=== PATIENT | male | born 1955 | race Hispanic/Latino ===

== ENCOUNTER 2017-05-02 06:07 | Day surgery (SDC) | payer BC ==
[2017-05-01 13:52] VITALS: BMI 36.9
[2017-05-02] MEDS ORDERED: HEPARIN SODIUM/NS 2,000 ML IV ONE (06:36)
[2017-05-02] MEDS ORDERED: Lidocaine 2% Inj (20ml) ONE (06:36)
[2017-05-02] MEDS ORDERED: Phenylephrine 10 mg/ml Inj ONE (06:38)
[2017-05-02] MEDS ORDERED: Nitroglycerin 50mg in D5W 0 MG/0 ML BOTTLE IV ONE (06:44)
[2017-05-02] MEDS ORDERED: Iodixanol 320 MG/ML 200 ML BOTTLE IV ONE (06:52)
[2017-05-02] MEDS ORDERED: Iodixanol 320 MG/ML 100 ML BOTTLE IV ONE (06:52)
[2017-05-02] MEDS ORDERED: Iohexol 350mgl/ml 50 ML ONE (06:52)
[2017-05-02 07:13] LABS: BASO # 0.02 K/mm3 (0.0-2.0); BASO % 0.3 % (0.0-3.0); EOS # 0.1 (0.0-0.7); EOS % 1.3 % (1.5-5.0); GRAN # 5.93 (1.4-6.5); GRAN % 74.6 % (50.0-68.0); LYMPH # 1.3 (1.2-3.4); MEAN CELL VOLUME 86.8 fl (80.0-105.0); MEAN CORPUSCULAR HEMOGLOBIN 28.3 pg (25.0-35.0); MEAN CORPUSCULAR HGB CONC 32.6 g/dl (31.0-37.0); MEAN PLATELET VOLUME 9.3 fl (7.0-11.0); MONO # 0.6 (0.1-0.6); MONO % 7.8 % (1.0-6.0); RBC 4.94 10^6/uL (3.5-6.1); RED CELL DISTRIBUTION WIDTH 13.5 % (11.5-14.5); WHITE BLOOD COUNT 7.9 10^3/ul (4.5-11.0)
[2017-05-02 07:17] LABS: BLOOD UREA NITROGEN 23 mg/dL (7-21); GFR AFRICAN-AMERICAN > 60; GFR NON-AFRICAN AMERICAN > 60
[2017-05-02 07:24] LABS: PARTIAL THROMBOPLASTIN TIME 28.7 Seconds (25.1-36.5); PROTHROMBIN TIME 11.5 SECONDS (9.4-12.5)
[2017-05-02] MEDS ORDERED: Midazolam 2 MG/2 ML VIAL ONE ×2 (07:32→08:04)
[2017-05-02] MEDS ORDERED: Adenosine 90 mg/30mL IV ONE (08:21)
[2017-05-02] MEDS ORDERED: Sodium Chloride 0.9% 1,000 ML IV SCH (09:00)
--- NOTE | 2017-05-02 10:04 | CARDCATH ---
PROCEDURE DATE: 05/02/2017 PROCEDURES: 1. Cardiac catheterization. 2. Percutaneous transluminal coronary angioplasty. PERFORMING PHYSICIAN: Reg Chow MD HISTORY: The patient is a 61-year-old male with multiple cardiac risk factors who is status post multivessel PTCA and stent in the past who presents with an abnormal stress test. A cardiac catheterization was recommended. PROCEDURE IN DETAIL: Left heart catheterization with coronary arteriography, left ventriculogram, FFR, as well as PTCA and stent of an LAD. The right femoral artery was cannulated with a 6-Croatian sheath. There were no complications. The right femoral artery was cannulated with a 6-Croatian sheath. I performed moderate sedation which included the presence of an independent trained observer that assisted in monitoring the patient's level of consciousness and physiologic status. After administration of Versed and fentanyl, my intra service time was 30 minutes. FINDINGS: 1. The findings on the catheterization revealed a left ventricle that contracted normally. Estimated ejection fraction is 65% to 70%. 2. The patient has a right dominant circulation as a patent stent in the RCA. 3. Left main artery was unremarkable. 4. The circumflex artery and obtuse marginal branches revealed patent stents, one in the midportion and one at the proximal portion in the ostium of the OM. There is a 50% to 60% stenosis noted. 5. The LAD revealed diffuse atherosclerosis throughout its tree. There was a patent stent noted in the mid to distal portion, there was an eccentric 70% stenoses noted. 6. The diagonal vessels revealed intimal irregularities without critical lesions. 7. An FFR was performed which due to technical difficulties could not be measured accurately. 8. The patient was started on Angiomax. 9. The guiding catheter was placed in the ostium of the left main artery. An 0.014 ATW wire was used to cross the critical lesion. 10 A 2.5 x 18 mm drug-eluting stent was placed and deployed at 12 ounces of pressure. Repeat coronary arteriography revealed an excellent result with no residual stenosis and LORENA III flow. 11. Angio-Seal was used to close the femoral artery site. The patient tolerated the procedure well. IMPRESSION: 1. In summary, the procedure was successful percutaneous transluminal coronary angioplasty and stent of a critically stenosed mid to distal left anterior descending with a drug-eluting stent. 2. The rest of the stent that were placed in the past were patent. 3. Left ventricular function is normal. PLAN: Given these findings, the patient's treatment will be continue aspirin indefinitely and Plavix for at least a year and undergo a strict cardiac risk reduction program. Reg Chow MD
--- NOTE | 2017-05-02 11:06 | CP.PCM.HP ---
History of Present Illness - History of Present Illness History of Present Illness: IM H&P for Dr. Boudreaux Service CC: observation post-Cath HPI: This is a 61 yo M with PMH of DM, HTN, HLD, CAD s/p 3 stents ( 2016) and prior AK who presents for scheduled cardiac cath after outpatient stress test showed an abnormality. Patient underwent elective cardiac cath today, during which a critically-stenosed mid-distal LAD segment was identified , and a drug-eluting stent was placed. Patient then transferred to telemetry floor for post-cath observation. As per patient, was asymptomatic prior to both the stress test and the cath, and still reports a lack of chest pain, nausea, or shortness of breath. No complaints at time of exam on the floor. Right femoral canulation site pressure bandaged, without acute pain, no active oozing or bleeding. All other ROS in 12-system review negative. PMH: as above PSH: Cardiac cath 2015, Cardiac cath 2017 Fam Hx: Unspecified brain cancer (father), denies family hx of cardiac disease Soc Hx: former tobacco (1/2 ppd intermittently for > 10 yrs, quit 2 yrs prior), denies alcohol or illicits/IVDA PMD: Dr. Boudreaux Present on Admission - Present on Admission Any Indicators Present on Admission: No History of DVT/PE: No History of Uncontrolled Diabetes: No Review of Systems - Review of Systems All systems: reviewed and no additional remarkable complaints except (as per HPI ) Past Patient History - Tetanus Immunizations Tetanus Immunization: Unknown - Past Social History Smoking Status: Former Smoker - CARDIAC Hx Pacemaker: No - PULMONARY Hx Respiratory Disorders: Yes Hx Bronchitis: Yes - NEUROLOGICAL Hx Paralysis: No - HEENT Hx HEENT Problems: No Other/Comment: WEARS RX GLASSES - RENAL Hx Chronic Kidney Disease: No - ENDOCRINE/METABOLIC Hx Endocrine Disorders: Yes Hx Diabetes Mellitus Type 2: Yes - HEMATOLOGICAL/ONCOLOGICAL Hx Blood Transfusions: No - INTEGUMENTARY Hx Dermatological Problems: Yes Hx Psoriasis: Yes - MUSCULOSKELETAL/RHEUMATOLOGICAL Hx Musculoskeletal Disorders: No - GASTROINTESTINAL Hx Gastrointestinal Disorders: No - GENITOURINARY/GYNECOLOGICAL Hx Genitourinary Disorders: No - PSYCHIATRIC Hx Emotional Abuse: No Hx Physical Abuse: No Hx Substance Use: No - SURGICAL HISTORY Hx Surgeries: Yes - ANESTHESIA Hx Anesthesia Reactions: No Hx Malignant Hyperthermia: No Meds Allergies/Adverse Reactions: Allergies Allergy/AdvReac Type Severity Reaction Status Date / Time No Known Allergies Allergy Verified 05/10/15 15:36 Physical Exam - Constitutional Appears: Non-toxic, No Acute Distress - Head Exam Head Exam: ATRAUMATIC, NORMAL INSPECTION, NORMOCEPHALIC - Eye Exam Eye Exam: EOMI, Normal appearance. absent: Conjunctival injection, Scleral icterus Pupil Exam: absent: Irregular, Unequal - ENT Exam ENT Exam: Mucous Membranes Moist - Neck Exam Neck exam: Positive for: Full Rom, Normal Inspection - Respiratory Exam Respiratory Exam: Decreased Breath Sounds (mildly decreased breath sounds in all phillips), Clear to Auscultation Bilateral, NORMAL BREATHING PATTERN. absent : Accessory Muscle Use, Chest Wall Tenderness, Rales, Rhonchi, Wheezes - Cardiovascular Exam Cardiovascular Exam: REGULAR RHYTHM, RRR, +S1, +S2. absent: Bradycardia, Tachycardia, Irregular Rhythm, JVD, +S4 - GI/Abdominal Exam GI & Abdominal Exam: Normal Bowel Sounds, Soft. absent: Tenderness - Extremities Exam Extremities exam: Positive for: pedal pulses present (+2 radials and +1 dorsalis pedis B/L). Negative for: joint swelling, pedal edema, tenderness Additional comments: bandaging at right groin cannulation site, no fluctuance/erythema/tenderness at site, no active bleeding or oozing from site - Neurological Exam Neurological exam: Alert Additional comments: -awake and alert, moving bilateral upper extremities and left lower extremity spontaneously, intentionally restricting right lower extremity movement due to instructions not to move leg (s/p cath) - Psychiatric Exam Psychiatric exam: Normal Affect, Normal Mood - Skin Skin Exam: Dry, Intact (except as documented in extremities exam), Normal Color , Warm Results - Vital Signs Recent Vital Signs: Last Vital Signs Temp 98.7 F 05/02/17 10:25 Pulse 78 05/02/17 10:25 Resp 18 05/02/17 10:25 BP 128/76 05/02/17 10:25 Pulse Ox 97 05/02/17 06:51 - Labs Result Diagrams: 05/02/17 06:30 05/02/17 06:30 Labs: Laboratory Results - last 24 hr 05/02/17 05/02/17 05/02/17 06:30 06:30 06:30 WBC 7.9 RBC 4.94 Hgb 14.0 Hct 42.9 MCV 86.8 MCH 28.3 MCHC 32.6 RDW 13.5 Plt Count 262 MPV 9.3 Gran % 74.6 H Lymph % (Auto) 16.0 L [place] % (Auto) 7.8 H Eos % (Auto) 1.3 L Baso % (Auto) 0.3 Gran # 5.93 Lymph # (Auto) 1.3 [place] # (Auto) 0.6 Eos # (Auto) 0.1 Baso # (Auto) 0.02 PT 11.5 INR 1.00 APTT 28.7 Sodium 141 Potassium 4.6 Chloride 103 Carbon Dioxide 24 Anion Gap 19 BUN 23 H Creatinine 0.9 Est GFR ( Amer) > 60 Est GFR (Non-Af Amer) > 60 Random Glucose 130 H Calcium 9.0 Blood Type Blood Type Confirm Antibody Screen BBK History Checked 05/02/17 05/02/17 06:30 06:45 WBC RBC Hgb Hct MCV MCH MCHC RDW Plt Count MPV Gran % Lymph % (Auto) [place] % (Auto) Eos % (Auto) Baso % (Auto) Gran # Lymph # (Auto) [place] # (Auto) Eos # (Auto) Baso # (Auto) PT INR APTT Sodium Potassium Chloride Carbon Dioxide Anion Gap BUN Creatinine Est GFR ( Amer) Est GFR (Non-Af Amer) Random Glucose Calcium Blood Type A POSITIVE Blood Type Confirm A POSITIVE Antibody Screen Negative BBK History Checked No verified bt Assessment & Plan - Assessment and Plan (Free Text) Assessment: This is a 61 yo M with PMH of DM, HTN, HLD, CAD s/p 3 stents (2015) and prior AK who presents for scheduled cardiac cath after outpatient stress test showed an abnormality. He is admitted for tele-obs s/p cath. Plan: 1) CAD with 3 stents, S/p cardiac cath -as per Cardio, mid-distal LAD stent placed, hx of 3 prior stents -vitals and duplex pulses as per cardio's instructions -no right lower extremity movement for 6 hrs -continue ASA, plavix, and statin as per Cardio 2) HTN -holding home Losartan/HCTZ due to stable BP and recent dye challenge to kidneys (cardiac cath) -if BP becomes elevated, can use prn hydralazine 3) HLD -continue atorvastatin -heart-healthy diet 4) DM -holding home insulin regimen in favor of high sliding scale -fingerchecks ACHS Dispo: Tele-obs post-cath, pending pulse checks FEN: Heart-healthy Access: Peripheral IV Consults: Cardio Ppx: Protonix for GI, avoid SCD for RLE until limb cleared Patient seen, reviewed, and discussed with attending, Dr. Boudreaux. Decision To Admit - Pt Status Changed To: Hospital Disposition Of: Extended Recovery/Post Procedure - . Bed Request Type: Telemetry
[2017-05-02 12:10] LABS: HDL CHOLESTEROL 38 mg/dL (29-60)
[2017-05-02 12:20] LABS: LDL CHOLESTEROL 71 mg/dL (0-129)
--- NOTE | 2017-05-02 12:51 | CARD ---
APPROVED REPORT EKG Measurement Heart [id number] ID [id number] <Conclusion> Normal sinus rhythm Possible Left atrial enlargement Borderline ECG
[2017-05-02 13:16] LABS: FREE T4 1.02 ng/dL (0.78-2.19); T4 6.9 ug/dL (5.5-11.0)
--- NOTE | 2017-05-02 15:23 | HP ---
ADDENDUM The patient is seen and examined in room 273, bed 3, post cardiac cath and angioplasty. The patient was seen and examined with the medical transcriber. The patient is lying in the bed at present. The patient's vital signs, diagnostic data, all reports reviewed. IMPRESSION: 1. Status post cardiac catheterization and percutaneous transluminal coronary angioplasty of the left anterior descending artery. 2. History of myocardial infarction. 3. History of multivessel coronary artery disease and status post angioplasty x4. 4. Left ventricle ejection fraction of 65% to 70%. 5. Patent stent of the right coronary artery. 6. Patent stent of the obtuse marginal and left circumflex. 7. A 50% to 60% stenosis of the midportion and proximal portion of the obtuse marginal. 8. Patent stent of the mid and distal portion of the left anterior descending artery with an eccentric 70% stenosis. 9. Status post successful percutaneous transluminal coronary angioplasty and stent placement of the critically stenosed mid to distal left anterior descending artery with a drug-eluting stent. 10. Insulin-requiring diabetes mellitus. 11. Obesity. 12. Diabetic neuropathy. 13. Hypertension. 14. Hypovitaminosis D. 15. Dyslipidemia. 16. Obesity with elevated body mass index of 37. 17. Abnormal stress on 04/27/2017 showing fixed inferolateral defect. 18. History of successful angioplasty and stent placement of the proximal left anterior descending stenosis, history of multivessel coronary artery disease. 19. History of acute ST elevation inferior wall myocardial infarction. 20. Past medical history is also significant for unstable angina, history of former smoker. PLAN: At this time, the patient is admitted to telemetry post cardiac catheterization and angioplasty. The patient will be placed on bedrest. The patient has been ordered repeat CBC, CMP in the morning. The patient is started on aspirin and Lipitor and Plavix and IV fluid 0.9 at 100 mL an hour. Repeat EKG ordered. Consistent carbohydrate diet ordered. The patient will be placed on sliding scale insulin. We will hold basal insulin as the patient is reporting that his blood sugar has been running normal. We will order lipid panel and hemoglobin A1c and thyroid profile while the patient is in the hospital. At present, the patient has been started on aspirin 81 daily, insulin sliding scale coverage high-dose, Lipitor 40 mg daily, Plavix 75 daily, IV fluid 0.9 normal saline at 100 mL an hour. The patient is on post cardiac catheterization angioplasty bedrest. For further details of history and physical examination, please review the history and physical examination done by the medical transcriber on 05/02/2017. Dictated and electronically signed, not read. Vahid Boudreaux MD
[2017-05-02] MEDS: Insulin Lispro (HUMAlog) HIGH Coverage SC SCH (16:30)
[2017-05-02] MEDS: Pantoprazole 40 mg EC Tab PO SCH (18:17)
[2017-05-03] MEDS: Pantoprazole 40 mg EC Tab PO SCH (05:02)
[2017-05-03 05:33] VITALS: RESP 20; TEMP 97.8; O2SAT 95
[2017-05-03 06:05] LABS: FRUCTOSAMINE 227 umol/L (190-270)
[2017-05-03 06:40] LABS: BASO # 0.03 K/mm3 (0.0-2.0); BASO % 0.3 % (0.0-3.0); EOS # 0.1 (0.0-0.7); EOS % 1.1 % (1.5-5.0); GRAN # 7.16 (1.4-6.5); GRAN % 75.3 % (50.0-68.0); HEMOGLOBIN 14.2 g/dL (14.0-18.0); LYMPH # 1.3 (1.2-3.4); LYMPH % 13.3 % (22.0-35.0); MEAN CORPUSCULAR HEMOGLOBIN 28.3 pg (25.0-35.0); MEAN CORPUSCULAR HGB CONC 32.6 g/dl (31.0-37.0); MEAN PLATELET VOLUME 9.1 fl (7.0-11.0); RBC 5.01 10^6/uL (3.5-6.1); RED CELL DISTRIBUTION WIDTH 13.6 % (11.5-14.5); WHITE BLOOD COUNT 9.5 10^3/ul (4.5-11.0)
[2017-05-03 07:35] LABS: BLOOD UREA NITROGEN 20 mg/dL (7-21); CALCIUM 9.3 mg/dL (8.4-10.5); GFR AFRICAN-AMERICAN > 60; GFR NON-AFRICAN AMERICAN > 60
[2017-05-03] MEDS ORDERED: Sod Polystyrene Sulf 15 gm/60 ml Susp PO ONE (08:01)
[2017-05-03] MEDS: Insulin Lispro (HUMAlog) HIGH Coverage SC SCH (08:33)
[2017-05-03 09:54] VITALS: BP 116/78; PULSE 97
[2017-05-03] MEDS ORDERED: CHOLECALCIFEROL 5000 UNIT PO SCH ×3 (10:00)
--- NOTE | 2017-05-03 11:15 | PN ---
DATE: 05/03/2017 CARDIOLOGY FOLLOWUP SUBJECTIVE: The patient is asymptomatic post PTCA. PHYSICAL EXAMINATION VITAL SIGNS: Blood pressure is 116/78, heart rates in the 80s. NECK: Negative JVD. LUNGS: Without rales. HEART: S1 and S2. EXTREMITIES: Without edema. LABORATORY DATA: Hemoglobin is 14. Chemistries: BUN and creatinine are unremarkable. Glucose is 139. IMPRESSION AND PLAN: 1. Stable post percutaneous transluminal coronary angioplasty and stent. 2. Coronary artery disease. 3. Diabetes mellitus. 4. Hypertension. 5. Hypercholesterolemia. 6. Overweight. Given these findings, the patient is stable for discharge. Followup and instructions have been given to the patient in detail. We will discontinue his Protonix. The patient has an appointment to follow with me in 2-3 weeks. Reg Chow MD
--- NOTE | 2017-05-03 16:12 | CARD ---
APPROVED REPORT EKG Measurement Heart [id number] <Conclusion> Normal sinus rhythm Normal ECG
--- NOTE | 2017-05-04 07:09 | DS ---
HISTORY OF PRESENT ILLNESS: Patient is seen in room 273, bed 3. Patient is out of bed to chair. Patient is awaiting cardiology clearance for discharge. Right groin examination was intact without any hematoma. PHYSICAL EXAMINATION: VITAL SIGNS: T-max 98.6. Telemetry shows sinus rhythm, heart rate 85, 87, 84. Blood pressure 116/78 to 131/66, 117/65; respiration 20; O2 sat 95% to 96%. HEENT: Head examination normocephalic, atraumatic. HEENT examination shows pink conjunctivae. Anicteric sclerae. No oropharyngeal lesion. No neck rigidity. CHEST: Kyphosis. LUNGS: Shows no rales, crackles or wheezing. CARDIOVASCULAR: S1, S2, regular rhythm. ABDOMEN: Protuberant, obese. Positive bowel sound. GENITALIA: Male. RECTAL: Examination is deferred. EXTREMITIES: No pitting edema, no calf tenderness, no Homans' sign. MUSCULOSKELETAL: Shows elevated body mass index of 37. Cranial nerves II through XII limited. Gait examination is independent. DIAGNOSTICS: On 05/03, WBC 9.5, hemoglobin and hematocrit 14.2 and 43.6, platelet 264. Sodium 141; potassium 5.3, non hemolyzed; chloride 103; CO2 28; anion gap 16; BUN 20; creatinine 1.0. GFR greater than 60. Glucose 121, 139, 292. Calcium 9.3, hemoglobin A1c 6.7, cholesterol 133, LDL 71, HDL 38, triglycerides 84. EKG done today shows sinus rhythm, normal EKG. Patient is seen by Cardiology, Dr. Chow, cleared for discharge. FINAL IMPRESSION, PLAN, DISCHARGE DIAGNOSES: 1. Multivessel coronary artery disease. 2. Status post percutaneous coronary angioplasty and stent placement. 3. Insulin-requiring diabetes mellitus. 4. Morbid obesity. 5. Hypertension. 6. Dyslipidemia. 7. Status post cardiac catheterization and percutaneous transluminal coronary angioplasty of the critically stenosed [id number] left anterior descending artery with a drug-eluting stent. 8. Left ventricular ejection fraction of 65% to 70%. 9. Patent stent in the circumflex artery and obtuse marginal. 10. Patent stent in the midportion and the proximal portion of the obtuse marginal. 11. 50% to 60% stenosis of the obtuse marginal. 12. Patent stent in the [id number] portion of the left anterior descending artery with eccentric 70% stenosis. 13. Well-controlled insulin-requiring diabetes mellitus with hemoglobin A1c of 6.7. 14. Non-hemolyzed hyperkalemia. At present, patient is cleared for discharge. DISCHARGE MEDICATIONS: Patient is discharged home on: 1. Aspirin 81 mg daily. 2. Plavix 75 mg daily. 3. Lipitor 40 mg daily. 4. Vitamin D2 50,000 units weekly. 5. Patient is on Xigduo XR 12/999 daily. 6. Dexilant 60 mg daily. 7. Hyzaar 50/12.5 daily. 8. Soliqua 52 units every morning. 9. Patient is on Lopressor 25 mg twice a day. 10. Lyrica 50 mg at bedtime. Patient is discharged home after cleared by Cardiology. Patient was advised to follow up with Dr. Boudreaux within 1 week. Discharge medications as per updated ambulatory orders and new scripts. Weight loss was advised. Dictated and electronically signed, not read. Vahid Boudreaux MD
== END 2017-05-03 12:10 | disposition home or self-care (01) ==
LOC: CATH 06:07 → 2RSO 09:04 → CATH 05-03 12:10
PROVIDERS: ATTEND Internal Medicine Cardiovascular Disease
DX: I25.10 Atherosclerotic heart disease of native coronary artery without angina pectoris (principal); I25.2 Old myocardial infarction; E11.40 Type 2 diabetes mellitus with diabetic neuropathy, unspecified; I10 Essential (primary) hypertension; E78.00 Pure hypercholesterolemia, unspecified; E55.9 Vitamin D deficiency, unspecified; E66.9 Obesity, unspecified; Z68.37 Body mass index [BMI] 37.0-37.9, adult; Z79.4 Long term (current) use of insulin; Z95.5 Presence of coronary angioplasty implant and graft; Z87.891 Personal history of nicotine dependence
CPT/HCPCS: 36415; 80048; 80061; 82306; 82948; 82985; 83036; 84378; 84439; 84443; 85025; 85610; 85730; 86850; 86900; 93005; 93458; 93571; 99152; 99153; C1760; C1769 ×2; C1874; C1887 ×2; C2629; C9600; J0153; J0583; J1644; J2250; J3010; J7030; J7040; Q9967

== ENCOUNTER 2018-06-03 08:44 | Observation (INO) | payer BC ==
--- NOTE | 2018-06-03 09:38 | ED PDOC ---
Arrival/HPI - General Chief Complaint: Chest Pain Time Seen by Provider: 06/03/18 08:48 Historian: Patient - History of Present Illness Narrative History of Present Illness (Text): 06/03/18 09:37 62 year old male, with Past medical history of DM, HTN, HLD, CAD s/p 3 stents (2015) and prior [place] presents to the Emergency department complaining of continuos numbness in his left hand, fingers and thumb included, for the past 3 days. He is also complaining of an intermittent left sided chest pain, described as "twinges" that last for a couple of seconds, and left upper and lower back for the past 2 days. patient states he has dyspnea on exertion and experiences dizziness and lightheadedness with certain movements. He denies nausea, vomiting, diaphoresis or weakness. He also denies smoking and reports that he ceased 3 weeks ago, any illicit drug use, but endorses occasional drinking. Of note, patient reports that he did not take his aspirin or plavix today. PMD: Dr. Boudreaux Traffic Worker: Dr. Chow Time/Duration: < week Symptom Onset: Gradual Activities at Onset: Light Context: Home Past Medical History - Provider Review Nursing Documentation Reviewed: Yes - Tetanus Immunization Tetanus Immunization: Unknown - Cardiac Hx Pacemaker: No - Pulmonary Hx Respiratory Disorders: Yes Hx Bronchitis: Yes - Neurological Hx Paralysis: No - HEENT Hx HEENT Disorder: No Other/Comment: WEARS RX GLASSES - Renal Hx Renal Disorder: No - Endocrine/Metabolic Hx Endocrine Disorders: Yes Hx Diabetes Mellitus Type 2: Yes - Hematological/Oncological Hx Blood Transfusions: No - Integumentary Hx Dermatological Disorder: Yes Hx Psoriasis: Yes - Musculoskeletal/Rheumatological Hx Musculoskeletal Disorders: No - Gastrointestinal Hx Gastrointestinal Disorders: No - Genitourinary/Gynecological Hx Genitourinary Disorders: No - Psychiatric Hx Emotional Abuse: No Hx Physical Abuse: No Hx Substance Use: No - Surgical History Hx Coronary Stent: Yes (4 CARDIAC STENTS 05-10-15) Other/Comment: CARDIAC CATH 11-02-15 WITH CORONARY STENTS PLACED 4 - Anesthesia Hx Anesthesia: Yes Hx Anesthesia Reactions: No Hx Malignant Hyperthermia: No - Suicidal Assessment Feels Threatened In Home Enviroment: No Family/Social History - Physician Review Nursing Documentation Reviewed: Yes Family/Social History: Unknown Family HX Smoking Status: Former Smoker Hx Alcohol Use: No Hx Substance Use: No Hx Substance Use Treatment: No Allergies/Home Meds Allergies/Adverse Reactions: Allergies No Known Allergies Allergy (Verified 06/03/18 11:33) Home Medications: Home Meds Medication Instructions Recorded Confirmed Cholecalciferol (Vitamin D3) 5,000 unit PO DAILY 05/14/15 05/02/17 [Vitamin D3] Dapagliflozin/Metformin HCl 1 tab PO DAILY 04/27/17 05/02/17 [Xigduo Xr 10 mg-1,000 mg Tab] Dexlansoprazole [Dexilant] 60 mg PO DAILY 04/27/17 05/02/17 HCTZ/Losartan Potassium [Hyzaar 1 tab PO DAILY 04/27/17 05/02/17 12.5 MG-50 MG] Pregabalin [Lyrica] 50 mg PO HS 04/27/17 05/02/17 Insulin Glargine/Lixisenatide 52 unit SC QAM 05/01/17 05/02/17 [Soliqua 100 Unit-33 Mcg/ml Pen] Review of Systems - Physician Review All systems were reviewed & negative as marked: Yes - Review of Systems Cardiovascular: Chest Pain, GARCIA Gastrointestinal: absent: Nausea, Vomiting Musculoskeletal: Back Pain, Other (left hand numbness) Neurological: Dizziness (with certain movements) Endocrine: absent: Diaphoresis Physical Exam Vital Signs Reviewed: Yes Vital Signs Temp Pulse Pulse Resp BP Pulse Ox 06/03/18 08:55 98 H 06/03/18 08:44 97.9 F 107 H 18 143/80 98 Temperature: Afebrile Blood Pressure: Normal Pulse: Tachycardic Respiratory Rate: Normal Appearance: Positive for: Well-Appearing, Non-Toxic, Comfortable Pain Distress: None Mental Status: Positive for: Alert and Oriented X 3 - Systems Exam Head: Present: Atraumatic, Normocephalic Pupils: Present: PERRL Extroacular Muscles: Present: EOMI Conjunctiva: Present: Normal Mouth: Present: Moist Mucous Membranes Neck: Present: Normal Range of Motion Respiratory/Chest: Present: Clear to Auscultation, Good Air Exchange. No: Respiratory Distress, Accessory Muscle Use Cardiovascular: Present: Regular Rate and Rhythm, Normal S1, S2. No: Murmurs Abdomen: No: Tenderness, Distention, Peritoneal Signs Back: Present: Normal Inspection Upper Extremity: Present: Normal Inspection. No: Cyanosis, Edema Lower Extremity: Present: Normal Inspection. No: Edema Neurological: Present: GCS=15, CN II-XII Intact, Speech Normal Skin: Present: Warm, Dry, Normal Color. No: Rashes Psychiatric: Present: Alert, Oriented x 3, Normal Insight, Normal Concentration Medical Decision Making ED Course and Treatment: 06/03/18 09:53 Impression: 62 year old male presents to the Emergency department complaining of left hand numbness and left sided CP Plan: - Chest X-ray - ECG - Labs - Aspirin - IV fluids -- Reassess and disposition Prior Visits: Notes and results from previous visits were reviewed. Progress Notes: 06/03/18 11:20 Dr Boudreaux is here. Telemetry observation admission. 06/03/18 11:36 EKG shows normal sinus rhythm rate approximately [address] or T wave changes and poor R wave progression. - RAD Interpretation Narrative RAD Interpretations (Text): 06/03/18 11:27 Chest X-ray, radiologist reviewed, no active diseases. Radiology Orders: 06/03/18 09:14 CHEST PORTABLE [RAD] Stat Director Electrical Engineering: Radiologist - Medication Orders Current Medication Orders: Discontinued Medications Aspirin (Ecotrin) 81 mg PO STAT STA Stop: 06/03/18 09:14 Last Admin: 06/03/18 09:23 Dose: 81 mg - Scribe Statement The provider has reviewed the documentation as recorded by the Nohemy Walter, Karlos Avelar. All medical record entries made by the Ederibsamira were at my direction and personally dictated by me. I have reviewed the chart and agree that the record accurately reflects my personal performance of the history, physical exam, medical decision making, and the department course for this patient. I have also personally directed, reviewed, and agree with the discharge instructions and disposition. Disposition/Present on Arrival - Present on Arrival Any Indicators Present on Arrival: No History of DVT/PE: No History of Uncontrolled Diabetes: No Urinary Catheter: No History of Decub. Ulcer: No History Surgical Site Infection Following: None - Disposition Have Diagnosis and Disposition been Completed?: Yes Diagnosis: Chest pain, Paresthesia Disposition: HOSPITALIZED Disposition Time: 11:20 Patient Plan: Observation, Telemetry Patient Problems: Current Active Problems Problem Status Onset Chest pain Acute Paresthesia Acute Condition: GOOD
[2018-06-03 09:39] LABS: BASO # 0.01 {null, K/mm3} (0.0-2.0); BASO % 0.1 % (0.0-3.0); EOS % 0.4 % (1.5-5.0); HEMOGLOBIN 14.2 g/dL (14.0-18.0); LYMPH # 1.2 (1.2-3.4); LYMPH % 16.4 % (22.0-35.0); MEAN CELL VOLUME 86.9 fl (80.0-105.0); MEAN CORPUSCULAR HEMOGLOBIN 29.1 pg (25.0-35.0); MEAN CORPUSCULAR HGB CONC 33.5 g/dl (31.0-37.0); MEAN PLATELET VOLUME 8.8 fl (7.0-11.0); MONO # 0.7 (0.1-0.6); MONO % 9.6 % (1.0-6.0); RBC 4.88 {null, 10^6/uL} (3.5-6.1); RED CELL DISTRIBUTION WIDTH 13.7 % (11.5-14.5); WHITE BLOOD COUNT 7.3 {null, 10^3/uL} (4.5-11.0)
[2018-06-03 09:48] LABS: INR 1.03; PARTIAL THROMBOPLASTIN TIME 30.8 Seconds (26.9-38.3); PROTHROMBIN TIME 11.6 SECONDS (9.4-12.5)
[2018-06-03 09:59] LABS: ALB/GLOB RATIO 1.3 (1.1-1.8); ALBUMIN 4.4 g/dL (3.0-4.8); ALT/SGPT 19 U/L (7-56); AST/SGOT 39 U/L (17-59); BLOOD UREA NITROGEN 35 mg/dL (7-21); CALCIUM 9.2 mg/dL (8.4-10.5); GFR NON-AFRICAN AMERICAN 51
[2018-06-03 10:00] LABS: B-TYPE NATRIURETIC PEPTIDE 56.9 pg/mL (0-450); TROPONIN I < 0.01 ng/mL
--- NOTE | 2018-06-03 10:05 | RAD ---
Date of service: 06/03/2018 HISTORY: cp COMPARISON: 05/10/2015 FINDINGS: LUNGS: No active pulmonary disease. PLEURA: No significant pleural effusion identified, no pneumothorax apparent. CARDIOVASCULAR: No aortic atherosclerotic calcification present. Normal cardiac size. No pulmonary vascular congestion. OSSEOUS STRUCTURES: No significant abnormalities. VISUALIZED UPPER ABDOMEN: Normal. OTHER FINDINGS: None. IMPRESSION: No active disease.
[2018-06-03 10:27] LABS: CK-MB 4.6 ng/mL (0.0-3.6)
--- NOTE | 2018-06-03 12:06 | CP.PCM.HP ---
History of Present Illness - History of Present Illness History of Present Illness: [facility] Resident- H&P on Behalf of Dr. Boudreaux's Service Subjective CC: Chest pain HPI: Patient is a 62 year old male with a past medical history of DM, HTN, HLD, CAD s/p 4 stents, and IA who presents to the emergency room for evaluation and treatment of chest pain which began 3 days ago with no specific provoking event. Patient states he was at rest when he felt a sharp pain which originated and remained localized to the left sternal area. The pain resolved with no acute intervention. Also admits to numbness in the fingers of the left hand which is intermittent in nature. States the numbness began on Sunday as well but is not associated with the chest pain. Denies fever, chills, headache, SOB, abdominal pain, N/V, diarrhea, constipation, and urinary symptoms. 12 point ROS negative except as indicated in HPI Past Medical History: DM, HTN, HLD, CAD s/p 4 stents (3 in 2016 and 1 in 2018) and prior IA Past Surgical History: Cardiac cath 2016, Cardiac cath 2018 Allergies: NKDA Social History: former tobacco (1/2 ppd intermittently for > 10 yrs, quit 2 yrs prior), denies alcohol or illicits/IVDA Family History: father- Unspecified brain cancer (father), denies family hx of cardiac disease PMD: Dr. Boudreaux Physical Examination: - Constitutional Appears: Non-toxic, No Acute Distress - Head Exam Head Exam: ATRAUMATIC, NORMAL INSPECTION, NORMOCEPHALIC - Eye Exam Eye Exam: EOMI - ENT Exam ENT Exam: Mucous Membranes Moist - Neck Exam Neck exam: Positive for: Full Rom, Normal Inspection - Respiratory Exam Respiratory Exam: NORMAL BREATHING PATTERN. absent: Accessory Muscle Use, Chest Wall Tenderness, Rales, Rhonchi, Wheezes - Cardiovascular Exam Cardiovascular Exam: REGULAR RHYTHM, RRR, +S1, +S2. absent: Bradycardia, Tachycardia, Irregular Rhythm, JVD, +S4 - GI/Abdominal Exam GI & Abdominal Exam: Normal Bowel Sounds, Soft. absent: Tenderness - Extremities Exam Extremities exam: Negative for: joint swelling, pedal edema, tenderness - Neurological Exam Neurological exam: Awake, alert, Oriented x3, responds to verbal stimuli, follows commands, and moves extremities past midline CN II-XII Intact - Psychiatric Exam Psychiatric exam: Normal Affect, Normal Mood - Skin Skin Exam: Dry, Intact, Normal Color, Warm Assessment and Plan: Patient is a 62 year old male with a past medical history of DM, HTN, HLD, CAD s/p 4 stents, and prior IA who was admitted for evaluation and treatment of chest pain. Chest Pain, CAD - rule out active ACS - EKG in ED reviewed- Sinus tachycardia, HR 101bpm, QTc 409ms, no acute ST- T wave changes - troponins in ED < 0.01, trend x 2 q4h with associated EKGs - continue home ASA, plavix, and statin - continue home metoprolol tartrate with holding parameters - echo ordered and pending - cardiology consulted- appreciate recommendations HTN -continue home Losartan/HCTZ with holding parameters HLD -continue home atorvastatin -heart-healthy diet/carb consistent diet DM, Diabetic Neuropathy - start basal insulin NPH 10 units breakfast time with holding parameters - start ISS lispro high - fingerchecks ACHS Prophylaxis - DVT ppx- subq heparin - GI ppx- famotidine Patient case discussed with and plan approved by attending physician, Dr. Boudreaux. Present on Admission - Present on Admission Any Indicators Present on Admission: No Past Patient History - Tetanus Immunizations Tetanus Immunization: Unknown - Past Social History Smoking Status: Former Smoker - CARDIAC Hx Pacemaker: No - PULMONARY Hx Respiratory Disorders: Yes Hx Bronchitis: Yes - NEUROLOGICAL Hx Paralysis: No - HEENT Hx HEENT Problems: No Other/Comment: WEARS RX GLASSES - RENAL Hx Chronic Kidney Disease: No - ENDOCRINE/METABOLIC Hx Endocrine Disorders: Yes Hx Diabetes Mellitus Type 2: Yes - HEMATOLOGICAL/ONCOLOGICAL Hx Blood Transfusions: No - INTEGUMENTARY Hx Dermatological Problems: Yes Hx Psoriasis: Yes - MUSCULOSKELETAL/RHEUMATOLOGICAL Hx Musculoskeletal Disorders: No - GASTROINTESTINAL Hx Gastrointestinal Disorders: No - GENITOURINARY/GYNECOLOGICAL Hx Genitourinary Disorders: No - PSYCHIATRIC Hx Emotional Abuse: No Hx Physical Abuse: No Hx Substance Use: No - SURGICAL HISTORY Hx Coronary Stent: Yes (4 CARDIAC STENTS 05-10-15) Other/Comment: CARDIAC CATH 11-02-15 WITH CORONARY STENTS PLACED 4 - ANESTHESIA Hx Anesthesia: Yes Hx Anesthesia Reactions: No Hx Malignant Hyperthermia: No Meds Allergies/Adverse Reactions: Allergies Allergy/AdvReac Type Severity Reaction Status Date / Time No Known Allergies Allergy Verified 06/03/18 11:33 Results - Vital Signs Recent Vital Signs: Last Vital Signs Temp 97.9 F 06/03/18 08:44 Pulse 95 H 06/03/18 11:16 Resp 18 06/03/18 11:16 BP 123/70 06/03/18 11:16 Pulse Ox 98 06/03/18 11:16 - Labs Result Diagrams: 06/03/18 09:20 06/03/18 09:20 Labs: Laboratory Results - last 24 hr 06/03/18 06/03/18 06/03/18 09:20 09:20 09:20 WBC 7.3 RBC 4.88 Hgb 14.2 Hct 42.4 MCV 86.9 MCH 29.1 MCHC 33.5 RDW 13.7 Plt Count 239 MPV 8.8 Neut % (Auto) 73.5 H Lymph % (Auto) 16.4 L Davidson % (Auto) 9.6 H Eos % (Auto) 0.4 L Baso % (Auto) 0.1 Lymph # (Auto) 1.2 Davidson # (Auto) 0.7 H Eos # (Auto) 0.0 Baso # (Auto) 0.01 Absolute Neuts (auto) 5.37 PT 11.6 INR 1.03 APTT 30.8 Sodium 138 Potassium 4.8 Chloride 107 Carbon Dioxide 25 Anion Gap 11 BUN 35 H Creatinine 1.4 Est GFR ( Amer) > 60 Est GFR (Non-Af Amer) 51 Random Glucose 106 Calcium 9.2 Magnesium 2.4 H Total Bilirubin 0.8 AST 39 ALT 19 Alkaline Phosphatase 83 Lactate Dehydrogenase 505 Total Creatine Kinase 389 H CK-MB (CK-2) 4.6 H CK-MB (CK-2) % Cancelled Troponin I < 0.01 D NT-Pro-B Natriuret Pep 56.9 Total Protein 7.9 Albumin 4.4 Globulin 3.5 Albumin/Globulin Ratio 1.3
[2018-06-03 13:33] LABS: HDL CHOLESTEROL 38 mg/dL (29-60)
[2018-06-03 13:34] VITALS: BMI 37.3
[2018-06-03] MEDS ORDERED: Pneumococcal 23-Valent Vaccine IM ONE (13:34)
[2018-06-03] MEDS ORDERED: Influenza Vaccine 60 mcg/0.5 mL SYR (4YR UP) IM ONE (13:34)
--- NOTE | 2018-06-03 13:35 | CON ---
DATE OF CONSULTATION: 06/03/2018 CARDIOLOGY CONSULTATION HISTORY: The patient is a 62-year-old male with multiple cardiac risk factors, who presents with 24 hours of pinching and sharp pains on his left sternum, his left axilla, left shoulder, and left arm. These occurred at rest. There are no anginal symptoms when he exerts himself. PAST MEDICAL HISTORY: The patient's past medical history includes multivessel PTCA and stent with one done 2 months ago. He is compliant with his medications. His past medical history includes hypertension and hypercholesterolemia. He is obese. SOCIAL HISTORY: The patient has lost 6 pounds. REVIEW OF SYSTEMS: Fourteen-point review of systems is reviewed in detail. No additional cardiac symptoms are noted. PHYSICAL EXAMINATION: VITAL SIGNS: Blood pressure is stable, heart rate is in the 60s, normal sinus rhythm. NECK: Negative JVD. LUNGS: Without rales. CARDIAC: Heart rate S1, S2. EXTREMITIES: Without edema. EKG shows normal sinus rhythm with no acute changes. LABORATORY DATA: Troponins are negative x1. IMPRESSION: 1. Atypical chest pain. 2. Paresthesias 3. Coronary artery disease. 4. No evidence for acute coronary syndrome. 5. History of multivessel percutaneous transluminal coronary angioplasty and stent. 6. Hypertension. 7. Hypercholesterolemia. 8. Obesity. PLAN: Given these findings, I do not believe that the patient's symptoms are related to his coronary arteries nor represent ischemic events. However, the patient will be admitted to telemetry. We will obtain serial troponins. We will place the patient back on his aspirin and Plavix. Reg Chow MD
[2018-06-03 13:44] LABS: LDL CHOLESTEROL 87 mg/dL (0-129)
[2018-06-03 13:47] LABS: TROPONIN I < 0.01 ng/mL
--- NOTE | 2018-06-03 15:24 | CARD ---
APPROVED REPORT Date of service: 06/03/2018 EKG Measurement Heart [id number] [place] [id number] <Conclusion> Normal sinus rhythm Normal ECG
--- NOTE | 2018-06-03 15:43 | CARD ---
APPROVED REPORT Date of service: 06/03/2018 EKG Measurement Heart [id number] AL [id number] <Conclusion> Sinus tachycardia Otherwise normal ECG
[2018-06-03] MEDS: Insulin Lispro (HUMAlog) HIGH Coverage SC SCH ×2 (17:15→21:29)
[2018-06-03 18:51] LABS: TROPONIN I < 0.01 ng/mL
[2018-06-03 18:58] LABS: CK-MB 3.3 ng/mL (0.0-3.6)
--- NOTE | 2018-06-03 22:09 | CARD ---
APPROVED REPORT Date of service: 06/03/2018 EKG Measurement Heart [id number] NV [id number] <Conclusion> Normal sinus rhythm Normal ECG
[2018-06-04 05:40] VITALS: O2SAT 98
[2018-06-04 07:10] LABS: BASO # 0.02 {null, K/mm3} (0.0-2.0); BASO % 0.3 % (0.0-3.0); EOS # 0.1 (0.0-0.7); EOS % 1.7 % (1.5-5.0); LYMPH # 1.5 (1.2-3.4); LYMPH % 23.9 % (22.0-35.0); MEAN CELL VOLUME 88.2 fl (80.0-105.0); MEAN CORPUSCULAR HEMOGLOBIN 29.1 pg (25.0-35.0); MEAN PLATELET VOLUME 9.1 fl (7.0-11.0); MONO # 0.7 (0.1-0.6); MONO % 11.4 % (1.0-6.0); RBC 5.15 {null, 10^6/uL} (3.5-6.1); RED CELL DISTRIBUTION WIDTH 13.7 % (11.5-14.5); WHITE BLOOD COUNT 6.3 {null, 10^3/uL} (4.5-11.0)
[2018-06-04 07:50] LABS: ALB/GLOB RATIO 1.2 (1.1-1.8); ALBUMIN 4.4 g/dL (3.0-4.8); ALT/SGPT 21 U/L (7-56); AST/SGOT 37 U/L (17-59); BLOOD UREA NITROGEN 30 mg/dL (7-21); GFR NON-AFRICAN AMERICAN 51
[2018-06-04] MEDS ORDERED: Insulin Human NPH 1 UNITS/0.01 ML SC SCH (10:00)
[2018-06-04] MEDS ORDERED: Non Formulary Medication (Hctz/Losartan Potassium [Hyzaar 12.5 Mg-50 Mg] 1 TAB) PO SCH (10:00)
[2018-06-04] MEDS ORDERED: Cholecalciferol 1,000 INTLU TAB PO SCH (10:00)
--- NOTE | 2018-06-04 10:32 | CARD ---
APPROVED REPORT Date of service: 06/04/2018 EKG Measurement Heart [id number] MT [id number] <Conclusion> Normal sinus rhythm Normal ECG
[2018-06-04] MEDS: Insulin Lispro (HUMAlog) HIGH Coverage SC SCH (10:40)
--- NOTE | 2018-06-04 10:50 | CP.PCM.DIS ---
Provider - Provider Date of Admission: 06/03/18 11:16 Attending physician: Vahid Boudreaux MD Consults: 06/03/18 12:18 Physician Consult Routine Comment: Consulting Provider: Reg Chow Consulting Physician: Reg Chow Reason for Consult: chest pain, hx of ACS 06/03/18 13:34 Inpatient SHIP MATE Core Measures Referral Routine Comment: Physician Instructions: Reason For Exam: EVALUATION Transition In Care/Readmission Reduction Routine Comment: Physician Instructions: Reason For Exam: EVALUATION Time Spent in preparation of Discharge (in minutes): 45 Diagnosis - Discharge Diagnosis (1) Chest pain Status: Resolved Priority: Medium (2) Paresthesia Status: Acute Priority: Medium (3) History of coronary artery disease Status: Chronic Priority: Medium (4) History of hypertension Status: Chronic Priority: Medium (5) History of hyperlipidemia Status: Chronic Priority: Medium Hospital Course - Lab Results Lab Results: Most Recent Lab Values WBC 6.3 10^3/uL (4.5-11.0) 06/04/18 06:30 RBC 5.15 10^6/uL (3.5-6.1) 06/04/18 06:30 Hgb 15.0 g/dL (14.0-18.0) 06/04/18 06:30 Hct 45.4 % (42.0-52.0) 06/04/18 06:30 MCV 88.2 fl (80.0-105.0) 06/04/18 06:30 MCH 29.1 pg (25.0-35.0) 06/04/18 06:30 MCHC 33.0 g/dl (31.0-37.0) 06/04/18 06:30 RDW 13.7 % (11.5-14.5) 06/04/18 06:30 Plt Count 243 10^3/uL (120.0-450.0) 06/04/18 06:30 MPV 9.1 fl (7.0-11.0) 06/04/18 06:30 Neut % (Auto) 62.7 % (50.0-68.0) 06/04/18 06:30 Lymph % (Auto) 23.9 % (22.0-35.0) 06/04/18 06:30 Marion % (Auto) 11.4 % (1.0-6.0) H 06/04/18 06:30 Eos % (Auto) 1.7 % (1.5-5.0) 06/04/18 06:30 Baso % (Auto) 0.3 % (0.0-3.0) 06/04/18 06:30 Lymph # (Auto) 1.5 (1.2-3.4) 06/04/18 06:30 Marion # (Auto) 0.7 (0.1-0.6) H 06/04/18 06:30 Eos # (Auto) 0.1 (0.0-0.7) 06/04/18 06:30 Baso # (Auto) 0.02 K/mm3 (0.0-2.0) 06/04/18 06:30 Absolute Neuts (auto) 3.97 (1.4-6.5) 06/04/18 06:30 PT 11.6 SECONDS (9.4-12.5) 06/03/18 09:20 INR 1.03 06/03/18 09:20 APTT 30.8 Seconds (26.9-38.3) 06/03/18 09:20 Sodium 138 mmol/L (132-148) 06/04/18 06:30 Potassium 5.0 mmol/L (3.6-5.0) 06/04/18 06:30 Chloride 103 mmol/L (98-107) 06/04/18 06:30 Carbon Dioxide 28 mmol/L (21-33) 06/04/18 06:30 Anion Gap 12 (10-20) 06/04/18 06:30 BUN 30 mg/dL (7-21) H 06/04/18 06:30 Creatinine 1.4 mg/dl (0.8-1.5) 06/04/18 06:30 Est GFR ( Amer) > 60 06/04/18 06:30 Est GFR (Non-Af Amer) 51 06/04/18 06:30 POC Glucose (mg/dL) 124 mg/dL (65-110) H 06/04/18 07:32 Random Glucose 116 mg/dL (70-110) H 06/04/18 06:30 Hemoglobin A1c 6.8 % (4.2-6.5) H 06/03/18 13:15 Calcium 9.0 mg/dL (8.4-10.5) 06/04/18 06:30 Phosphorus 4.0 mg/dL (2.5-4.5) 06/04/18 06:30 Magnesium 2.7 mg/dL (1.7-2.2) H 06/04/18 06:30 Total Bilirubin 0.8 mg/dL (0.2-1.3) 06/04/18 06:30 AST 37 U/L (17-59) 06/04/18 06:30 ALT 21 U/L (7-56) 06/04/18 06:30 Alkaline Phosphatase 82 U/L (38-126) 06/04/18 06:30 Lactate Dehydrogenase 478 U/L (333-699) 06/03/18 18:27 Total Creatine Kinase 333 U/L (35-230) H 06/03/18 18:27 CK-MB (CK-2) 3.3 ng/mL (0.0-3.6) 06/03/18 18:27 CK-MB (CK-2) % Cancelled 06/03/18 09:20 Troponin I < 0.01 ng/mL 06/03/18 18:27 NT-Pro-B Natriuret Pep 56.9 pg/mL (0-450) 06/03/18 09:20 Total Protein 8.1 g/dL (5.8-8.3) 06/04/18 06:30 Albumin 4.4 g/dL (3.0-4.8) 06/04/18 06:30 Globulin 3.8 gm/dL 06/04/18 06:30 Albumin/Globulin Ratio 1.2 (1.1-1.8) 06/04/18 06:30 Triglycerides 85 mg/dL (35-160) 06/03/18 13:15 Cholesterol 148 mg/dL (130-200) 06/03/18 13:15 LDL Cholesterol Direct 87 mg/dL (0-129) 06/03/18 13:15 HDL Cholesterol 38 mg/dL (29-60) 06/03/18 13:15 - Hospital Course Hospital Course: Patient is a 62 year old male with a past medical history of DM, HTN, HLD, CAD s/p 4 stents, and prior MO who was admitted for evaluation and treatment of chest pain and numbness in the left hand. With the use of physical examinations, lab work, and imaging the patient was diagnosed with and treated for the aforementioned symptoms along with the patients chronic medical conditions. ACS was ruled out. Numbness was attributed to diabetic neuropathy. During their hospital stay the patient was seen by cardiology (Dr. Chow) and their recommendations were both appreciated and utilized in the care for this patient. Dr. Chow does not believe the patient symptoms are related to his coronary arteries nor do they represent a an ischemic event. During their hospital stay the patient underwent an echocardiogram which was reviewed, appreciated, and utilized in the management of the patients clinical course. Patient was treated with aspirin, plavix, losartan, metoprolol, insulin NPH and sliding scale amongst other empiric/therapeutic medications. At this time the patient is medically stable for discharge. Patient understands and appreciates discharge plan. Patient instructed to follow up with primary care physicians and referrals within three to five days from discharge. Furthermore, the patient is instructed to take medications as prescribed and to return to emergency room for evaluation of new or worsening symptoms including but not limited to intractable headache, fever, chills, dizziness, chest pain, shortness of breath, abdominal pain, nausea, vomiting, diarrhea, constipation, and urinary symptoms. This is a brief summary of the patients hospital course. Please see patient chart for full details. Discharge Exam - Additional Findings Additional findings: - Constitutional Appears: Non-toxic, No Acute Distress - Head Exam Head Exam: ATRAUMATIC, NORMAL INSPECTION, NORMOCEPHALIC - Eye Exam Eye Exam: EOMI - ENT Exam ENT Exam: Mucous Membranes Moist - Neck Exam Neck exam: Positive for: Full Rom, Normal Inspection - Respiratory Exam Respiratory Exam: NORMAL BREATHING PATTERN. absent: Accessory Muscle Use, Chest Wall Tenderness, Rales, Rhonchi, Wheezes - Cardiovascular Exam Cardiovascular Exam: REGULAR RHYTHM, RRR, +S1, +S2. absent: Bradycardia, Tachycardia, Irregular Rhythm, JVD, +S4 - GI/Abdominal Exam GI & Abdominal Exam: Normal Bowel Sounds, Soft. absent: Tenderness - Extremities Exam Extremities exam: Negative for: joint swelling, pedal edema, tenderness - Neurological Exam Neurological exam: Awake, alert, Oriented x3, responds to verbal stimuli, follows commands, and moves extremities past midline CN II-XII Intact - Psychiatric Exam Psychiatric exam: Normal Affect, Normal Mood - Skin Skin Exam: Dry, Intact, Normal Color, Warm Discharge Plan - Follow Up Plan Condition: GOOD Disposition: HOME/ ROUTINE Additional Instructions: MAY DISCHARGE AFTER CLEARED BY CARDIOLOGY FOLLOW UP: DR.HAQUE MCKEON WITHIN 1 WEEK DISCHARGE MEDS PER UPDATED AMBULATORY ORDERS PLUS NEW SCRIPTS COPY OF MODERATE CARB HEART HEALTHY DIET TO PATIENT UPON DISCHARGE. Referrals: Vahid Boudreaux MD [Family Provider] - 1 Week (MAY DISCHARGE AFTER CLEARED BY CARDIOLOGY FOLLOW UP: DR.HAQUE MCKEON WITHIN 1 WEEK DISCHARGE MEDS PER UPDATED AMBULATORY ORDERS PLUS NEW SCRIPTS COPY OF MODERATE CARB HEART HEALTHY DIET TO PATIENT UPON DISCHARGE.) Reg Chow MD [Staff Provider] - 1 Week (JULY DISCHARGE AFTER CLEARED BY CARDIOLOGY FOLLOW UP: DR.HAQUE MCKEON WITHIN 1 WEEK DISCHARGE MEDS PER UPDATED AMBULATORY ORDERS PLUS NEW SCRIPTS COPY OF MODERATE CARB HEART HEALTHY DIET TO PATIENT UPON DISCHARGE.)
[2018-06-04 13:20] VITALS: BP 116/73; PULSE 72; RESP 20; TEMP 98.6
--- NOTE | 2018-06-04 18:02 | PN ---
DATE: 06/04/2018 CARDIOLOGY FOLLOWUP SUBJECTIVE: The patient is chest pain free. PHYSICAL EXAMINATION: VITAL SIGNS: Blood pressure 116/73, heart rates in the 70s. NECK: Negative JVD. LUNGS: Without rales. HEART: S1 and S2. EXTREMITIES: Without edema. LABORATORY DATA: Hemoglobin is 15, BUN and creatinine are 30 and 1.4. The glucose is 116. Troponin is negative. Echocardiogram reveals normal LV function with an EF of 60%. IMPRESSION: 1. Atypical chest pain. 2. No evidence for acute coronary syndrome. 3. History of percutaneous transluminal coronary angioplasty and stent in the past. 4. Hypertension. 5. Hypercholesterolemia. 6. Obesity. 7. Borderline diabetes mellitus. Given these findings, there is no evidence for acute coronary syndrome, the patient can be discharged today. We will arrange for an outpatient stress test later on this week. Reg Chow MD
--- NOTE | 2018-06-04 21:34 | DS ---
DATE OF DISCHARGE: 06/04/2018 LOCATION: Patient is in Room 271, Bed 1. CHIEF COMPLAINT: Text. HISTORY OF PRESENT ILLNESS: Overnight nurses' notes were reviewed. No adverse events were documented, notified, or called for. The patient's chest pain symptoms have significantly improved. The patient's pain appeared to be starting from the neck and the shoulder associated with left arm numbness. And the patient's left-sided chest pain has resolved. PHYSICAL EXAMINATION: VITAL SIGNS: T-max afebrile. Telemetry normal sinus rhythm, heart rate 68, blood pressure 120/82, 116/77, and O2 sat is 95% to 98%, respiration 18 to 20. HEENT: Head; normocephalic, atraumatic. HEENT examination shows pink conjunctivae. Anicteric sclerae. No oropharyngeal lesion. NECK: No neck rigidity. CHEST: Kyphosis. LUNGS: Shows no audible crackle, rales or wheezing. CARDIOVASCULAR: S1, S2, regular rhythm. ABDOMEN: Obese, protuberant. Positive bowel sound. No palpable hepatosplenomegaly. GENITALIA: Male. RECTAL: Deferred. EXTREMITIES: Shows no pitting edema, no calf tenderness, no Homans' sign. NEUROLOGIC: The patient is alert, awake, responsive, is able to move upper and lower extremity without assistance. Gait examination is not tested. Body mass index is elevated. LABORATORY DATA: The patient's all three sets of troponin is negative. CPK is mildly elevated around 350 to 300. The patient's hemoglobin A1c 6.8. The patient's LDL is 87. CBC and CMP, LFTs are within normal limits. EKG was reviewed which appears to be normal without any ST elevation or depression. The patient seen by Cardiology, Dr. Reg Chow's recommendations reviewed. FINAL IMPRESSION AND DISCHARGE DIAGNOSES: 1. Chest pain, etiology undetermined versus atypical chest pain with left upper extremity paresthesias and numbness. 2. Questionable cervical radiculopathy. 3. History of multivessel coronary artery disease, history of multiple angioplasty and stent placement. 4. History of coronary artery disease and coronary angioplasty and history of myocardial infarction. 5. Insulin-requiring diabetes mellitus well controlled with hemoglobin A1c of 6.8. 6. Hypertension. 7. Morbid obesity. 8. Hyperlipidemia. 9. Diabetic neuropathy. 10. Mildly elevated CPK. PLAN: At this time; 1. Cardiology's impression was reviewed. Cardiology's impression is that the patient's symptoms are atypical pain. The patient has been resumed on aspirin and Plavix which the patient has been also receiving at home. If the patient is cleared for discharge by Cardiology, the patient will be considered for discharge home after Cardiology clearance and evaluation. 2. The patient's discharge medications will be as per the revised ambulatory orders and revised home medications. 3. Next discharge followup with Dr. Boudreaux and Dr. Reg Chow within 1 week. The patient is also advised to be given a copy of the heart healthy and moderate carbohydrate diet. The patient was advised weight loss and the patient is advised regular exercise. The patient has been updated about his condition, diagnosis, test results. The patient is awaiting for the echocardiogram. If it is done today, the results will be reviewed when available and echocardiogram results can be followed up as an outpatient in the office also. Dictated and electronically signed, not read. Vahid Boudreaux MD
== END 2018-06-04 14:16 | disposition home or self-care (01) ==
LOC: ED 08:44 → ERH 11:16 → 2RSO 14:20
PROVIDERS: ADMIT Internal Medicine; ATTEND Internal Medicine
DX: R07.89 Other chest pain (principal); E11.40 Type 2 diabetes mellitus with diabetic neuropathy, unspecified; I10 Essential (primary) hypertension; E78.00 Pure hypercholesterolemia, unspecified; E78.5 Hyperlipidemia, unspecified; I25.10 Atherosclerotic heart disease of native coronary artery without angina pectoris; I25.2 Old myocardial infarction; E66.9 Obesity, unspecified; Z68.37 Body mass index [BMI] 37.0-37.9, adult; Z95.5 Presence of coronary angioplasty implant and graft; Z79.4 Long term (current) use of insulin; Z79.82 Long term (current) use of aspirin; Z87.891 Personal history of nicotine dependence
CPT/HCPCS: 36415; 71045; 80053; 80061; 82550; 82553; 82948; 83036; 83615; 83735; 83880; 84100; 84484; 85025; 85610; 85730; 93005; 93306; 99283; G0378; J1644

== ENCOUNTER 2018-06-11 06:46 | Outpatient (CLI) | payer BC | END 2018-06-11 06:47 | disposition home or self-care (01) | LOC: CARDIO 06:46 ==

== ENCOUNTER 2018-06-20 06:29 | Day surgery (SDC) | payer BC ==
[2018-06-14 10:42] VITALS: BMI 36.0
[2018-06-20 07:10] LABS: BASO # 0.02 K/mm3 (0.0-2.0); BASO % 0.3 % (0.0-3.0); EOS # 0.1 (0.0-0.7); EOS % 1.4 % (1.5-5.0); HEMOGLOBIN 13.7 g/dL (14.0-18.0); LYMPH # 1.2 (1.2-3.4); LYMPH % 16.2 % (22.0-35.0); MEAN CELL VOLUME 86.6 fl (80.0-105.0); MEAN CORPUSCULAR HEMOGLOBIN 29.5 pg (25.0-35.0); MEAN CORPUSCULAR HGB CONC 34.1 g/dl (31.0-37.0); MEAN PLATELET VOLUME 8.9 fl (7.0-11.0); MONO # 0.6 (0.1-0.6); MONO % 8.4 % (1.0-6.0); RBC 4.64 10^6/uL (3.5-6.1); RED CELL DISTRIBUTION WIDTH 13.8 % (11.5-14.5); WHITE BLOOD COUNT 7.4 10^3/uL (4.5-11.0)
[2018-06-20 07:18] LABS: BLOOD UREA NITROGEN 26 mg/dL (7-21); CALCIUM 9.1 mg/dL (8.4-10.5); GFR NON-AFRICAN AMERICAN > 60; HDL CHOLESTEROL 46 mg/dL (29-60); INR 1.04; PARTIAL THROMBOPLASTIN TIME 29.6 Seconds (26.9-38.3); PROTHROMBIN TIME 11.7 SECONDS (9.4-12.5)
[2018-06-20 07:28] LABS: LDL CHOLESTEROL 85 mg/dL (0-129)
[2018-06-20] MEDS ORDERED: Lidocaine PF 2% (5 ml) Inj (For Cardiac Arrhy) ONE (08:41)
[2018-06-20] MEDS ORDERED: Iodixanol 320 MG/ML 100 ML BOTTLE IV ONE (08:41)
[2018-06-20] MEDS ORDERED: Iodixanol 320 MG/ML 200 ML BOTTLE IV ONE (08:41)
[2018-06-20] MEDS ORDERED: Iohexol 350mgl/ml 50 ML ONE (08:41)
[2018-06-20] MEDS ORDERED: Midazolam 2 MG/2 ML VIAL ONE ×2 (09:18→09:25)
[2018-06-20] MEDS ORDERED: Sodium Chloride 0.9% 1,000 ML IV SCH (10:00)
--- NOTE | 2018-06-20 11:08 | CARDCATH ---
PROCEDURE DATE: 06/20/2018 HISTORY: The patient is a 62-year-old male with triple-vessel PTCA and stent in the past who presents with exertional shortness of breath and chest pain. His stress test nuclear did not show much changes; however, his symptoms were what brought him to the catheter builder. He suffers from diabetes mellitus, hypertension and hypercholesterolemia, and remains obese. PROCEDURE: Left heart catheterization with coronary arteriography and left ventriculogram followed by percutaneous transluminal coronary angioplasty and stent of left anterior descending. The right femoral artery was cannulated with a 6-Syriac sheath. There were no complications. The patient underwent conscious sedation with a trained observer that helped me assist in monitoring the patient's level of consciousness and physiologic status. After administration of Versed and fentanyl, my intra-service time was 30 minutes. The findings on catheterization revealed a left ventricle that contracted normally. Estimated ejection fraction is 65% to 70%. His coronary anatomy was right dominant circulation. The RCA revealed intimal irregularities with a patent stent in the midportion. The left main artery was unremarkable. The LAD revealed a patent stent in its proximal/mid portion. In the mid to distal LAD, there was 80% stenosis noted. The circumflex artery revealed diffuse atherosclerosis without critical lesions. The obtuse marginal branch revealed a patent stent in its proximal portion. Just at the ostium of the OM, there is 60% stenosis noted. The patient was started on intravenous Angiomax on the fluoroscopic guide, the guiding catheter was placed in the ostium of the left main artery. An 0.014 ATW wire was used to cross the critical lesion in the LAD. A 2.25 x 8 mm drug-eluting stent was deployed at 14 ounces of pressure. Repeat coronary arteriography revealed an excellent result with no residual stenosis and LORENA III flow. The wire was then brought back and placed into the obtuse marginal branch. The stent would not cross into the obtuse marginal branch due to marked tortuosity. No further attempts were made. Repeat coronary arteriography revealed no change. Angio-Seal was used to close the femoral artery site. The patient tolerated the procedure well. In summary, the procedure was a successful PTCA and stent of a new de adrianne mid to distal LAD stenosis of 80% with a drug-eluting stent. Attempt at stenting the obtuse marginal branch ostium was unsuccessful. Cardiac catheterization reveals patent stents in all three vessels with new 80% stenosis. LV function is normal. His PRU reveals the patient is therapeutic to Plavix. Given these findings, the patient's treatment will be intensifying a cardiac risk reduction program and continue on Plavix for at least a year. Rge Chow MD
--- NOTE | 2018-06-20 14:13 | CP.PCM.HP ---
<TeraPhillip Smith - Last Filed: 06/20/18 14:15> History of Present Illness - History of Present Illness History of Present Illness: Medicine H/P (Dr. Barb Haley PGY - 2 Chief Complaint: Positive stress test 62 year old male with pertinent medical history of DM2, CAD s/p 5 stents, HLD, HTN, and former smoker, presents to [facility] ED on 06/20/18 for cardiac catheterization with Dr. Chow after positive outpatient stress test on 06/11/18. Patient was recently admitted to [facility] on 06/03/18 for evaluation of chest pain, at which time ACS was ruled out. ECHO was done at that time which showed 60% EF, mild concentric LVH, and mild TR. Patient was taken to dental laboratory technology teacher today which showed new 80% stenosis from last cath (Apr 2017) in the LAD; PTCA was done. Review of systems: 12 point ROS negative except as indicated in HPI Past Medical History: DM, HTN, HLD, CAD s/p 5 stents (3 in 2015, 1 in 2017, 1 now) and prior AL Past Surgical History: Cardiac cath 2016, Cardiac cath 2018, Cardiac cath today Allergies: NKDA Social History: Former tobacco quit 2 years ago; denies alcohol or illicits/IVDA Home Meds: ASA, Lipitor, Plavix; not on B-kusum; recently discontinued ARB; Xigduo XR Family History: Father- Unspecified brain cancer (father), denies family hx of cardiac disease PMD: Dr. Boudreaux Present on Admission - Present on Admission Any Indicators Present on Admission: No Past Patient History - Tetanus Immunizations Tetanus Immunization: Unknown - Past Social History Smoking Status: Former Smoker - CARDIAC Hx Pacemaker: No - PULMONARY Hx Respiratory Disorders: Yes Hx Bronchitis: Yes - NEUROLOGICAL Hx Paralysis: No - HEENT Hx HEENT Problems: No Other/Comment: WEARS RX GLASSES - RENAL Hx Chronic Kidney Disease: No - ENDOCRINE/METABOLIC Hx Endocrine Disorders: Yes Hx Diabetes Mellitus Type 2: Yes - HEMATOLOGICAL/ONCOLOGICAL Hx Blood Transfusions: No - INTEGUMENTARY Hx Dermatological Problems: Yes Hx Psoriasis: Yes - MUSCULOSKELETAL/RHEUMATOLOGICAL Hx Musculoskeletal Disorders: No - GASTROINTESTINAL Hx Gastrointestinal Disorders: No - GENITOURINARY/GYNECOLOGICAL Hx Genitourinary Disorders: No - PSYCHIATRIC Hx Emotional Abuse: No Hx Physical Abuse: No Hx Substance Use: No - SURGICAL HISTORY Hx Surgeries: Yes - ANESTHESIA Hx Anesthesia Reactions: No Hx Malignant Hyperthermia: No Meds Home Medications: Home Medication List Medication Instructions Recorded Confirmed Type Losartan [Cozaar] 25 mg PO DAILY #15 tab 06/21/18 Rx Allergies/Adverse Reactions: Allergies Allergy/AdvReac Type Severity Reaction Status Date / Time No Known Allergies Allergy Verified 06/03/18 11:33 Physical Exam - Constitutional Appears: Well Additional comments: Mildly anxious because does not want to lay flat - Head Exam Head Exam: ATRAUMATIC, NORMAL INSPECTION, NORMOCEPHALIC - Eye Exam Eye Exam: EOMI, Normal appearance, PERRL Pupil Exam: NORMAL ACCOMODATION, PERRL - ENT Exam ENT Exam: Mucous Membranes Moist, Normal Exam - Neck Exam Neck exam: Positive for: Normal Inspection - Respiratory Exam Respiratory Exam: Clear to Auscultation Bilateral, NORMAL BREATHING PATTERN - Cardiovascular Exam Cardiovascular Exam: REGULAR RHYTHM - GI/Abdominal Exam GI & Abdominal Exam: Normal Bowel Sounds, Soft. absent: Tenderness - Extremities Exam Extremities exam: Positive for: normal inspection Additional comments: Cath site is c/d/i - Back Exam Back exam: NORMAL INSPECTION - Neurological Exam Neurological exam: Alert, CN II-XII Intact, Normal Gait, Oriented x3, Reflexes Normal - Psychiatric Exam Psychiatric exam: Normal Affect, Normal Mood - Skin Skin Exam: Dry, Intact, Normal Color, Warm Results - Vital Signs Recent Vital Signs: Last Vital Signs Temp 98.2 F 06/20/18 10:05 Pulse 85 06/20/18 11:50 Resp 20 06/20/18 11:50 BP 140/80 06/20/18 11:50 Pulse Ox 98 06/20/18 07:10 - Labs Result Diagrams: 06/20/18 06:50 06/20/18 06:50 Labs: Laboratory Results - last 24 hr 06/20/18 06/20/18 06/20/18 06:50 06:50 06:50 WBC 7.4 RBC 4.64 Hgb 13.7 L Hct 40.2 L MCV 86.6 MCH 29.5 MCHC 34.1 RDW 13.8 Plt Count 242 MPV 8.9 Neut % (Auto) 73.7 H Lymph % (Auto) 16.2 L [place] % (Auto) 8.4 H Eos % (Auto) 1.4 L Baso % (Auto) 0.3 Lymph # (Auto) 1.2 [place] # (Auto) 0.6 Eos # (Auto) 0.1 Baso # (Auto) 0.02 Absolute Neuts (auto) 5.46 PT 11.7 INR 1.04 APTT 29.6 Sodium 141 Potassium 4.6 Chloride 107 Carbon Dioxide 25 Anion Gap 13 BUN 26 H Creatinine 1.0 Est GFR ( Amer) > 60 Est GFR (Non-Af Amer) > 60 Random Glucose 151 H Calcium 9.1 Triglycerides 63 Cholesterol 153 LDL Cholesterol Direct 85 HDL Cholesterol 46 Blood Type Antibody Screen BBK History Checked 06/20/18 06:50 WBC RBC Hgb Hct MCV MCH MCHC RDW Plt Count MPV Neut % (Auto) Lymph % (Auto) [place] % (Auto) Eos % (Auto) Baso % (Auto) Lymph # (Auto) [place] # (Auto) Eos # (Auto) Baso # (Auto) Absolute Neuts (auto) PT INR APTT Sodium Potassium Chloride Carbon Dioxide Anion Gap BUN Creatinine Est GFR ( Amer) Est GFR (Non-Af Amer) Random Glucose Calcium Triglycerides Cholesterol LDL Cholesterol Direct HDL Cholesterol Blood Type A POSITIVE Antibody Screen Negative BBK History Checked Patient has bt Assessment & Plan - Assessment and Plan (Free Text) Assessment: 62 year old male with pertinent medical history of DM2, HTN, HLD, CAD s/p 5 stents, latest being today presents for cardiac cath. S/p PTCA to LAD. OM shows 60% lesion, was not stented. Plan Post Cardiac Catheterization - Post - cath as per orders - NaCl @ 100/hr - Hold Metformin (in Xigduo XR) for 48 hours post-cath HTN - Give Cozaar if patient > 130/90 HLD - Continue home lipitor - Heart-healthy diet/carb consistent diet DM, Diabetic Neuropathy - RISS Medium with FS ACHS Prophylaxis - No PPX indicated at this time; will re-evaluate if patient is here tomorrow <Bisi Bowie - Last Filed: 06/21/18 13:54> Results - Vital Signs Recent Vital Signs: Last Vital Signs Temp 97.0 F L 06/21/18 05:38 Pulse 90 06/21/18 10:00 Resp 18 06/21/18 05:38 BP 110/70 06/21/18 09:39 Pulse Ox 96 06/21/18 05:38 - Labs Result Diagrams: 06/21/18 06:00 06/21/18 06:00 Labs: Laboratory Results - last 24 hr 06/20/18 06/20/18 06/21/18 16:04 21:32 06:00 WBC RBC Hgb Hct MCV MCH MCHC RDW Plt Count MPV Neut % (Auto) Lymph % (Auto) [place] % (Auto) Eos % (Auto) Baso % (Auto) Lymph # (Auto) [place] # (Auto) Eos # (Auto) Baso # (Auto) Absolute Neuts (auto) Sodium 139 Potassium 4.2 Chloride 106 Carbon Dioxide 26 Anion Gap 12 BUN 22 H Creatinine 0.9 Est GFR ( Amer) > 60 Est GFR (Non-Af Amer) > 60 POC Glucose (mg/dL) 239 H 160 H Random Glucose 151 H Calcium 8.7 06/21/18 06/21/18 06:00 07:20 WBC 7.6 RBC 4.57 Hgb 13.2 L Hct 40.2 L MCV 88.0 MCH 28.9 MCHC 32.8 RDW 13.9 Plt Count 234 MPV 8.8 Neut % (Auto) 70.2 H Lymph % (Auto) 16.7 L [place] % (Auto) 10.8 H Eos % (Auto) 1.8 Baso % (Auto) 0.5 Lymph # (Auto) 1.3 [place] # (Auto) 0.8 H Eos # (Auto) 0.1 Baso # (Auto) 0.04 Absolute Neuts (auto) 5.35 Sodium Potassium Chloride Carbon Dioxide Anion Gap BUN Creatinine Est GFR ( Amer) Est GFR (Non-Af Amer) POC Glucose (mg/dL) 152 H Random Glucose Calcium Attending/Attestation - Attestation I have personally seen and examined this patient.: Yes I have fully participated in the care of the patient.: Yes I have reviewed all pertinent clinical information: Yes Notes (Text): 06/21/18 13:40 Attending note; Patient seen and examined with resident. Status post cardiac cath. Right groin site is clean. No bleeding or hematoma noted. Peripheral pulse intact. Patient is a 62 year old male with PMH of DM2, CAD s/p 5 stents, HLD, HTN, and former smoker is admitted post cardiac catheterization with Dr. Chow after positive outpatient stress test on 06/11/18. 1. Status post cardiac catheterization with PTCA and drug-eluting stent placement in mid to distal LAD. Continue aspirin, Plavix, liptor. 2. Hypertension started on Cozaar. 3. Diabetes; hold metformin for 48 hours. Continue regular insulin sliding scale. 4. Obesity; diet, exercise recommended. Out of bed to chair as tolerated. Upon discharge patient will follow up with PMD . Follow-up with cardiology Dr. Chow.
[2018-06-20] MEDS: Insulin Reg-MEDIUM-Coverage SC SCH ×2 (17:24→21:48)
--- NOTE | 2018-06-20 22:39 | CARD ---
APPROVED REPORT Date of service: 06/20/2018 EKG Measurement Heart [id number] <Conclusion> Normal sinus rhythm Normal ECG
--- NOTE | 2018-06-20 22:46 | CARD ---
APPROVED REPORT Date of service: 06/20/2018 EKG Measurement Heart [id number] <Conclusion> Normal sinus rhythm Possible Left atrial enlargement QS complexes V1-2. Cannot exclude old ASMI CCR Borderline ECG
[2018-06-21 05:39] VITALS: RESP 18; TEMP 97; O2SAT 96
[2018-06-21 06:35] LABS: BASO # 0.04 K/mm3 (0.0-2.0); BASO % 0.5 % (0.0-3.0); EOS # 0.1 (0.0-0.7); EOS % 1.8 % (1.5-5.0); HEMOGLOBIN 13.2 g/dL (14.0-18.0); LYMPH # 1.3 (1.2-3.4); LYMPH % 16.7 % (22.0-35.0); MEAN CORPUSCULAR HEMOGLOBIN 28.9 pg (25.0-35.0); MEAN CORPUSCULAR HGB CONC 32.8 g/dl (31.0-37.0); MEAN PLATELET VOLUME 8.8 fl (7.0-11.0); MONO # 0.8 (0.1-0.6); MONO % 10.8 % (1.0-6.0); RBC 4.57 10^6/uL (3.5-6.1); RED CELL DISTRIBUTION WIDTH 13.9 % (11.5-14.5); WHITE BLOOD COUNT 7.6 10^3/uL (4.5-11.0)
[2018-06-21 06:43] LABS: BLOOD UREA NITROGEN 22 mg/dL (7-21); CALCIUM 8.7 mg/dL (8.4-10.5); GFR NON-AFRICAN AMERICAN > 60
[2018-06-21] MEDS: Insulin Reg-MEDIUM-Coverage SC SCH (09:35)
[2018-06-21 09:40] VITALS: BP 110/70
[2018-06-21 10:40] VITALS: PULSE 90
--- NOTE | 2018-06-21 11:21 | CP.PCM.DIS ---
<Palomo Vaughan - Last Filed: 06/21/18 11:09> Provider - Provider Attending physician: Bisi Bowie MD Primary care physician: Vahid Boudreaux MD Time Spent in preparation of Discharge (in minutes): 35 Hospital Course - Lab Results Lab Results: Most Recent Lab Values WBC 7.6 10^3/uL (4.5-11.0) 06/21/18 06:00 RBC 4.57 10^6/uL (3.5-6.1) 06/21/18 06:00 Hgb 13.2 g/dL (14.0-18.0) L 06/21/18 06:00 Hct 40.2 % (42.0-52.0) L 06/21/18 06:00 MCV 88.0 fl (80.0-105.0) 06/21/18 06:00 MCH 28.9 pg (25.0-35.0) 06/21/18 06:00 MCHC 32.8 g/dl (31.0-37.0) 06/21/18 06:00 RDW 13.9 % (11.5-14.5) 06/21/18 06:00 Plt Count 234 10^3/uL (120.0-450.0) 06/21/18 06:00 MPV 8.8 fl (7.0-11.0) 06/21/18 06:00 Neut % (Auto) 70.2 % (50.0-68.0) H 06/21/18 06:00 Lymph % (Auto) 16.7 % (22.0-35.0) L 06/21/18 06:00 [place] % (Auto) 10.8 % (1.0-6.0) H 06/21/18 06:00 Eos % (Auto) 1.8 % (1.5-5.0) 06/21/18 06:00 Baso % (Auto) 0.5 % (0.0-3.0) 06/21/18 06:00 Lymph # (Auto) 1.3 (1.2-3.4) 06/21/18 06:00 [place] # (Auto) 0.8 (0.1-0.6) H 06/21/18 06:00 Eos # (Auto) 0.1 (0.0-0.7) 06/21/18 06:00 Baso # (Auto) 0.04 K/mm3 (0.0-2.0) 06/21/18 06:00 Absolute Neuts (auto) 5.35 (1.4-6.5) 06/21/18 06:00 PT 11.7 SECONDS (9.4-12.5) 06/20/18 06:50 INR 1.04 06/20/18 06:50 APTT 29.6 Seconds (26.9-38.3) 06/20/18 06:50 Sodium 139 mmol/L (132-148) 06/21/18 06:00 Potassium 4.2 mmol/L (3.6-5.0) 06/21/18 06:00 Chloride 106 mmol/L (98-107) 06/21/18 06:00 Carbon Dioxide 26 mmol/L (21-33) 06/21/18 06:00 Anion Gap 12 (10-20) 06/21/18 06:00 BUN 22 mg/dL (7-21) H 06/21/18 06:00 Creatinine 0.9 mg/dl (0.8-1.5) 06/21/18 06:00 Est GFR ( Amer) > 60 06/21/18 06:00 Est GFR (Non-Af Amer) > 60 06/21/18 06:00 POC Glucose (mg/dL) 152 mg/dL (65-110) H 06/21/18 07:20 Random Glucose 151 mg/dL (70-110) H 06/21/18 06:00 Calcium 8.7 mg/dL (8.4-10.5) 06/21/18 06:00 Triglycerides 63 mg/dL (35-160) 06/20/18 06:50 Cholesterol 153 mg/dL (130-200) 06/20/18 06:50 LDL Cholesterol Direct 85 mg/dL (0-129) 06/20/18 06:50 HDL Cholesterol 46 mg/dL (29-60) 06/20/18 06:50 Blood Type A POSITIVE 06/20/18 06:50 Antibody Screen Negative 06/20/18 06:50 BBK History Checked Patient has bt 06/20/18 06:50 Physical Exam - Constitutional Appears: Well Additional comments: - Head Exam Head Exam: ATRAUMATIC, NORMAL INSPECTION, NORMOCEPHALIC - Eye Exam Eye Exam: EOMI, Normal appearance, PERRL Pupil Exam: NORMAL ACCOMODATION, PERRL - ENT Exam ENT Exam: Mucous Membranes Moist, Normal Exam - Neck Exam Neck exam: Positive for: Normal Inspection - Respiratory Exam Respiratory Exam: Clear to Auscultation Bilateral, NORMAL BREATHING PATTERN - Cardiovascular Exam Cardiovascular Exam: REGULAR RHYTHM - GI/Abdominal Exam GI & Abdominal Exam: Normal Bowel Sounds, Soft. absent: Tenderness - Extremities Exam Extremities exam: Positive for: normal inspection Additional comments: Cath site is c/d/i, no draining appreciated - Back Exam Back exam: NORMAL INSPECTION - Neurological Exam Neurological exam: Alert, CN II-XII Intact, Normal Gait, Oriented x3, Reflexes Normal - Skin Skin Exam: Dry, Intact, Normal Color, Warm - Hospital Course Hospital Course: Upon admission, 62 year old male with pertinent medical history of DM2, CAD s/p 5 stents, HLD, HTN, and former smoker, presents to [facility] ED on 06/20/18 for cardiac catheterization with Dr. Chow after positive outpatient stress test on 06/11/18. Patient was recently admitted to [facility] on 06/03/18 for evaluation of chest pain, at which time ACS was ruled out. ECHO was done at that time which showed 60% EF, mild concentric LVH, and mild TR. During hospital course, patient was taken to general laborer on 06/19/18 and showed new 80% stenosis in the mid to distal LAD. Other findings include patent stent in the proximal/mid LAD, circumflex artery reveal diffuse atherosclerosis without critical lesions, obtuse marginal has patent stent, 60% stenosis in the OM. Patient successful PTCA and stent of new dew de adrianne mid to distal LAD stenosis of 80% with SERA. Cardiac cath reveals patent stent in all three vessels with normal LV function. PRU reveals patient is therapeutic to plavix. Patient states he had all his medications at home and all his questions were answered to satisfaction. He agreed with discharge today and follow up with his PMD and Dr. Chow. Discharge Plan - Discharge Medications Prescriptions: Losartan [Cozaar] 25 mg PO DAILY #15 tab - Follow Up Plan Condition: GOOD Disposition: HOME/ ROUTINE Instructions: Coronary Heart Disease, Heart Healthy Diet, Myocardial Infarction (GEN) Additional Instructions: - Follow up with primary doctor within 3-5 days - Follow up with call or contact centre manager within 3-5 days - Continue Plavix for at least one year or instructed by call or contact centre manager - Resume Metformin (Xigduo) tomorrow (06/22/18) - Resume other home medications as prescribed - Recommend low carb, low salt, low fat diet - Log blood pressure at home - Return to ED if symptoms worsen Referrals: Vahid Boudreaux MD [Primary Care Provider] - Reg Chow MD [Staff Provider] - <Bisi Bowie - Last Filed: 06/21/18 13:55> Provider - Provider Attending physician: Bisi Bowie MD Primary care physician: Vahid Boudreaux MD Hospital Course - Lab Results Lab Results: Most Recent Lab Values WBC 7.6 10^3/uL (4.5-11.0) 06/21/18 06:00 RBC 4.57 10^6/uL (3.5-6.1) 06/21/18 06:00 Hgb 13.2 g/dL (14.0-18.0) L 06/21/18 06:00 Hct 40.2 % (42.0-52.0) L 06/21/18 06:00 MCV 88.0 fl (80.0-105.0) 06/21/18 06:00 MCH 28.9 pg (25.0-35.0) 06/21/18 06:00 MCHC 32.8 g/dl (31.0-37.0) 06/21/18 06:00 RDW 13.9 % (11.5-14.5) 06/21/18 06:00 Plt Count 234 10^3/uL (120.0-450.0) 06/21/18 06:00 MPV 8.8 fl (7.0-11.0) 06/21/18 06:00 Neut % (Auto) 70.2 % (50.0-68.0) H 06/21/18 06:00 Lymph % (Auto) 16.7 % (22.0-35.0) L 06/21/18 06:00 [place] % (Auto) 10.8 % (1.0-6.0) H 06/21/18 06:00 Eos % (Auto) 1.8 % (1.5-5.0) 06/21/18 06:00 Baso % (Auto) 0.5 % (0.0-3.0) 06/21/18 06:00 Lymph # (Auto) 1.3 (1.2-3.4) 06/21/18 06:00 [place] # (Auto) 0.8 (0.1-0.6) H 06/21/18 06:00 Eos # (Auto) 0.1 (0.0-0.7) 06/21/18 06:00 Baso # (Auto) 0.04 K/mm3 (0.0-2.0) 06/21/18 06:00 Absolute Neuts (auto) 5.35 (1.4-6.5) 06/21/18 06:00 PT 11.7 SECONDS (9.4-12.5) 06/20/18 06:50 INR 1.04 06/20/18 06:50 APTT 29.6 Seconds (26.9-38.3) 06/20/18 06:50 Sodium 139 mmol/L (132-148) 06/21/18 06:00 Potassium 4.2 mmol/L (3.6-5.0) 06/21/18 06:00 Chloride 106 mmol/L (98-107) 06/21/18 06:00 Carbon Dioxide 26 mmol/L (21-33) 06/21/18 06:00 Anion Gap 12 (10-20) 06/21/18 06:00 BUN 22 mg/dL (7-21) H 06/21/18 06:00 Creatinine 0.9 mg/dl (0.8-1.5) 06/21/18 06:00 Est GFR ( Amer) > 60 06/21/18 06:00 Est GFR (Non-Af Amer) > 60 06/21/18 06:00 POC Glucose (mg/dL) 152 mg/dL (65-110) H 06/21/18 07:20 Random Glucose 151 mg/dL (70-110) H 06/21/18 06:00 Calcium 8.7 mg/dL (8.4-10.5) 06/21/18 06:00 Triglycerides 63 mg/dL (35-160) 06/20/18 06:50 Cholesterol 153 mg/dL (130-200) 06/20/18 06:50 LDL Cholesterol Direct 85 mg/dL (0-129) 06/20/18 06:50 HDL Cholesterol 46 mg/dL (29-60) 06/20/18 06:50 Blood Type A POSITIVE 06/20/18 06:50 Antibody Screen Negative 06/20/18 06:50 BBK History Checked Patient has bt 06/20/18 06:50 Attending/Attestation - Attestation I have personally seen and examined this patient.: Yes I have fully participated in the care of the patient.: Yes I have reviewed all pertinent clinical information, including history, physical exam and plan: Yes Notes (Text): 06/21/18 13:54 Attending note; Patient seen and examined with resident. Status post cardiac cath. Right groin site is clean. No bleeding or hematoma noted. Peripheral pulse intact. tolerating diet well. ambulating without difficulty. Patient is a 62 year old male with PMH of DM2, CAD s/p 5 stents, HLD, HTN, and former smoker is admitted post cardiac catheterization with Dr. Chow after positive outpatient stress test on 06/11/18. 1. Status post cardiac catheterization with PTCA and drug-eluting stent placement in mid to distal LAD. Continue aspirin, Plavix, liptor. 2. Hypertension started on Cozaar. 3. Diabetes; hold metformin for 48 hours. Continue regular insulin sliding scale. 4. Obesity; diet, exercise recommended. Patient is clinically stable. discharge home today Upon discharge patient will follow up with PMD . Follow-up with cardiology Dr. Chow.
== END 2018-06-21 11:25 | disposition home or self-care (01) ==
LOC: CATH 06:29 → 2RSO 10:06 → CATH 06-21 11:25
PROVIDERS: ATTEND Internal Medicine
DX: I25.10 Atherosclerotic heart disease of native coronary artery without angina pectoris (principal); I10 Essential (primary) hypertension; E11.40 Type 2 diabetes mellitus with diabetic neuropathy, unspecified; I25.2 Old myocardial infarction; Z95.5 Presence of coronary angioplasty implant and graft; E78.00 Pure hypercholesterolemia, unspecified; E78.5 Hyperlipidemia, unspecified; E66.9 Obesity, unspecified; Z87.891 Personal history of nicotine dependence
CPT/HCPCS: 36415; 80048; 80061; 82948; 85025; 85576; 85610; 85730; 86850; 86900; 93005; 93458; 99152; C1760; C1769 ×2; C1874 ×2; C1887; C2629; C9600; J0583; J1644; J2250; J3010; J7030; Q9966; Q9967